=== PATIENT | female | born 1965 | race Caucasian/White ===

== ENCOUNTER 2017-08-08 14:19 | Emergency (ER) | payer OTHER ==
[2017-08-08] MEDS ORDERED: DIPHTH,PERTUSS(ACELL),TET TOX 0.5 ML DISP.SYRIN. VAX IM ONE (14:45)
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
[2017-08-08] MEDS ORDERED: KETOROLAC 60 MG/2 ML VIAL. IM ONE (15:30)
[2017-08-08 16:10] VITALS: BP 129/84
[2017-08-08] MEDS ORDERED: HYDR-971 PO (16:10)
[2017-08-08] MEDS ORDERED: IBUP800T19 PO (16:10)
== END 2017-08-08 16:24 | disposition home or self-care (01) ==
LOC: ER 14:19
DX: S61.217A Laceration without foreign body of left little finger without damage to nail, initial encounter (principal); S40.012A Contusion of left shoulder, initial encounter; V86.96XA Unspecified occupant of dirt bike or motor/cross bike injured in nontraffic accident, initial encounter; Y93.89 Activity, other specified; Y99.8 Other external cause status; Y92.89 Other specified places as the place of occurrence of the external cause
CPT/HCPCS: 12001; 70450; 72125; 73030; 73130; 73140; 90471; 90715; 96372; 99284; J1885